=== PATIENT | female | born 1970 | race Caucasian/White ===

== ENCOUNTER → 2017-05-23 | Outpatient (CLI) | payer OTHER | END | disposition home or self-care (01) | LOC: CFH 16:32 | PROVIDERS: ATTEND Nurse Practitioner Family | DX: N85.4 Malposition of uterus (principal) | CPT/HCPCS: 76830 ==

== ENCOUNTER → 2017-07-06 | Outpatient (CLI) | payer OTHER ==
[~2017-07-06] MED LIST: NORE1TAB34 PO
[2017-07-06 14:23] LABS: BASOPHILS # (AUTO) 0.02 x10^3/uL (0-0.1); BASOPHILS % (AUTO) 0 % (0-1); EOSINOPHILS # (AUTO) 0.06 x10^3/uL (0-0.4); EOSINOPHILS % (AUTO) 1 % (1-7); LYMPHOCYTES # (AUTO) 1.49 x10^3/uL (1-3.4); LYMPHOCYTES % (AUTO) 17 % (22-44); MD NO; MEAN CORPUSCULAR HEMOGLOBIN 31.2 pg (27.0-34.8); MEAN CORPUSCULAR HGB CONC 34.2 g/dL (32.4-35.8); MEAN CORPUSCULAR VOLUME 91.4 fL (80-100); MEAN PLATELET VOLUME 8.4 fL (7.4-10.4); MONOCYTES % (AUTO) 4 % (2-9); NEUTROPHILS % (AUTO) 78 % (42-75); PLATELET COUNT 248 x10^3/uL (130-400); RED BLOOD COUNT 4.72 x10^6/uL (3.82-5.3); RED CELL DISTRIBUTION WIDTH 14.1 % (9.6-15.2)
[2017-07-06 14:27] LABS: MICROSCOPIC NOT IND
[2017-07-06 14:29] LABS: CULTURE INDICATED? NO
== END | disposition home or self-care (01) ==
LOC: STAR 13:26
PROVIDERS: ATTEND Obstetrics & Gynecology
DX: Z01.818 Encounter for other preprocedural examination (principal)
CPT/HCPCS: 36415; 81003; 81025; 85025

== ENCOUNTER 2017-07-14 08:00 | Day surgery (SDC) | payer OTHER ==
[~2017-07-14] VITALS: Ht 160 cm; Wt 56.1 kg
[2017-07-14 08:38] VITALS: BP 121/86
[2017-07-14] MEDS ORDERED: LACTATED RINGERS 1,000 ML IV SCH (08:42)
[2017-07-14] MEDS ORDERED: ACETAMINOPHEN 500 MG TABLET PO ONE (09:00)
[2017-07-14] MEDS ORDERED: BUPIVACAINE/PF 0.25% ONE (09:40)
[2017-07-14] MEDS ORDERED: SILVER NITRATE STICK TP ONE (09:40)
[2017-07-14] MEDS ORDERED: SCOPOLAMINE PATCH, 1.5MG PATCH.TD72 TD ONE (09:44)
[2017-07-14] MEDS ORDERED: MIDAZOLAM 1 MG/ML, 2ML ONE (09:47)
[2017-07-14] MEDS ORDERED: FENTANYL PF 250 MCG/5ML ONE (09:47)
[2017-07-14 09:50] LABS: HCG UR SG 1.025 (1.003-1.030)
[2017-07-14] MEDS ORDERED: SUCCINYLCHOLINE 20 MG/ML, 10ML ONE (09:56)
[2017-07-14] MEDS ORDERED: PROPOFOL 10 MG/ML, 20ML ONE (09:56)
[2017-07-14] MEDS ORDERED: ROCURONIUM 10 MG/ML,10ML ONE (09:56)
[2017-07-14] MEDS ORDERED: MEPERIDINE/PF 25MG/0.5ML IVPush PRN (10:30)
[2017-07-14] MEDS ORDERED: MIDAZOLAM 1 MG/ML, 2ML IV PRN (10:30)
[2017-07-14] MEDS ORDERED: ONDANSETRON 2MG/ML, 2ML IVPush PRN (10:30)
[2017-07-14] MEDS ORDERED: HYDROmorphone 1 MG/ML, 1ML IV PRN (10:30)
[2017-07-14] MEDS ORDERED: hydrALAzine 20 MG/ML, 1ML IV PRN (10:30)
[2017-07-14] MEDS ORDERED: PROMETHAZINE 25 MG/ML, 1ML IV PRN (10:30)
[2017-07-14] MEDS ORDERED: LABETALOL 5MG/ML, 20ML IV PRN (10:30)
[2017-07-14] MEDS ORDERED: ALBUTEROL SULFATE 2.5 MG/3 ML NPPB PRN (10:30)
[2017-07-14] MEDS ORDERED: OXYcodone 5 MG/5 ML ORAL.SOL UDC PO PRN (10:30)
[2017-07-14] MEDS ORDERED: OXYcodone 5 MG/5 ML ORAL.SOL UDC ONE (11:30)
[2017-07-14] MEDS ORDERED: FENTANYL PF 100 MCG/2ML ONE (11:38)
[2017-07-14] MEDS: FENTANYL PF 100 MCG/2ML IV PRN ×2 (11:42→11:50)
[2017-07-14] MEDS ORDERED: ONDANSETRON 2MG/ML, 2ML ONE ×2 (12:11→16:36)
[2017-07-14] MEDS ORDERED: PROMETHAZINE 25 MG SUPP PR ONE ×2 (13:37→14:00)
[2017-07-14] MEDS ORDERED: DEXAMETHASONE 4 MG/ML, 1ML ONE (16:36)
== END 2017-07-14 16:20 | disposition home or self-care (01) ==
LOC: OUT 08:00
PROVIDERS: ATTEND Obstetrics & Gynecology
DX: N94.6 Dysmenorrhea, unspecified (principal); N80.9 Endometriosis, unspecified; N73.6 Female pelvic peritoneal adhesions (postinfective); Z98.890 Other specified postprocedural states
CPT/HCPCS: 58660; 81025; J0330; J1100; J2250; J2405; J2704; J3010; J3490; J7120

== ENCOUNTER 2018-10-02 10:52 | Emergency (ER) | payer OTHER ==
[~2018-10-02] VITALS: Ht 160 cm; Wt 59.2 kg
[2018-10-02] MEDS ORDERED: ONDANSETRON ODT 4 MG PO ONE (11:30)
[2018-10-02] MEDS ORDERED: MECLIZINE CHEWABLE 25 MG TAB PO ONE (11:30)
[2018-10-02 11:34] VITALS: BP 124/81
[2018-10-02] MEDS ORDERED: MECLIZINE CHEWABLE 25 MG TAB ONE (11:44)
[2018-10-02] MEDS ORDERED: ONDANSETRON ODT 4 MG ONE (11:44)
[2018-10-02 12:01] LABS: BASOPHILS # (AUTO) 0.03 x10^3/uL (0-0.1); BASOPHILS % (AUTO) 0 % (0-1); EOSINOPHILS # (AUTO) 0.03 x10^3/uL (0-0.4); EOSINOPHILS % (AUTO) 0 % (1-7); LYMPHOCYTES # (AUTO) 0.95 x10^3/uL (1-3.4); LYMPHOCYTES % (AUTO) 9 % (22-44); MD NO; MEAN CORPUSCULAR HEMOGLOBIN 31.5 pg (27.0-34.8); MEAN CORPUSCULAR HGB CONC 34.5 g/dL (32.4-35.8); MEAN CORPUSCULAR VOLUME 91.1 fL (80-100); MEAN PLATELET VOLUME 8.6 fL (7.4-10.4); MONOCYTES # (AUTO) 0.34 x10^3/uL (0.2-0.8); MONOCYTES % (AUTO) 3 % (2-9); NEUTROPHILS # (AUTO) 8.81 x10^3/uL (1.8-6.8); NEUTROPHILS % (AUTO) 87 % (42-75); PLATELET COUNT 291 x10^3/uL (130-400); RED BLOOD COUNT 4.95 x10^6/uL (3.82-5.3)
[2018-10-02 12:05] LABS: ALBUMIN 3.7 g/dL (3.4-5.0); ANION GAP 4 mmol/L (5-15); CALCIUM 8.8 mg/dL (8.5-10.1); CHLORIDE 108 mmol/L (98-107)
[2018-10-02 12:11] LABS: CREATININE 1.06 mg/dL (0.55-1.02); TROPONIN I < 0.015 ng/mL (0.000-0.045)
--- NOTE | 2018-10-02 12:15 | NUR ---
Break RN: Pt medicated as per emar for nausea & dizziness. OOB to restroom w/out assist to give urine sample. Sample tubed to lab. Pt reconnected to cardiac, NIBP & SPO2 monitors. Aware of POC.
[2018-10-02 12:28] LABS: HCG UR SG 1.008 (1.003-1.030)
[2018-10-02 12:29] LABS: MICROSCOPIC INDICATED
== END 2018-10-02 13:00 | disposition home or self-care (01) ==
LOC: ED 12:10
DX: R42 Dizziness and giddiness (principal)
CPT/HCPCS: 36415; 71046; 80048; 81001; 81025; 82040; 83880; 84484; 85025; 85379; 93005; 99284; Q0162

== ENCOUNTER 2020-03-04 10:27 | Emergency (ER) | payer BC, OTHER ==
[~2020-03-04] VITALS: Ht 160 cm; Wt 58.0 kg
--- NOTE | 2020-03-04 10:33 | NUR ---
THIS IS A 49 YO F BIB EMS FROM [facility] W/ C/O WITNESSED SYNCOPAL EPISODE. PT WAS BEING EVALUATED FOR FATIGUE, WEAKNESS, ABD CRAMPING X1 WEEK. PT WAS PRESCRIBED AZITHROMYCIN W/ NO RELIEF. PT REPORTS 1 EPISODE OF VOMITING YESTERDAY. PER EMS PT LOC X30 SECONDS. PT HAS NO C/O HEAD, NECK OR BACK PAIN. PIV CHEMIST. PER EMS. PT RECEIVED 250ML NS BOLUS AND 4MG ZOFRAN CHEMIST. PT RESTING ON GURNEY W/ CALL LIGHT IN REACH AND SIDE RAILS UPX2. CONNECTED TO MONITORING. RESP EVEN AND UNLABORED, NADN. LAKESHIA OMALLEY AT BEDSIDE FOR ED EVAL.
[2020-03-04] MEDS ORDERED: FAMOTIDINE 20 MG/2 ML ONE (10:58)
[2020-03-04] MEDS ORDERED: MORPHINE SULFATE 4 MG/ML, 1ML ONE ×2 (10:58→11:03)
[2020-03-04] MEDS ORDERED: ONDANSETRON 2MG/ML, 2ML ONE (10:58)
[2020-03-04] MEDS ORDERED: ONDANSETRON 2MG/ML, 2ML IVPush ONE (11:00)
[2020-03-04] MEDS ORDERED: SODIUM CHLORIDE FLUSH 10ML SYR IVF ONE (11:00)
[2020-03-04] MEDS ORDERED: SODIUM CHLORIDE 0.9% 1,000ML IVBOLUS ONE (11:00)
[2020-03-04] MEDS ORDERED: FAMOTIDINE 20 MG/2 ML IV ONE (11:00)
[2020-03-04] MEDS ORDERED: MORPHINE SULFATE 4 MG/ML, 1ML IVPush PRN (11:00)
--- NOTE | 2020-03-04 11:00 | NUR ---
PT AMBULATED TO THE BR W/ A STEADY GAIT. URINE COLLECTED AND SENT TO LAB.
--- NOTE | 2020-03-04 11:23 | NUR ---
PT MEDICATED PER EMAR. RESTING ON GURNEY W/ CALL LIGHT IN REACH AND SIDE RAIL UP. CONNECTED TO MONITORING. RESP EVEN AND UNLABORED, ORTEGA.
[2020-03-04 11:26] LABS: MEAN CORPUSCULAR HEMOGLOBIN 31.1 pg (27.0-34.8); MEAN CORPUSCULAR HGB CONC 33.6 g/dL (32.4-35.8); MEAN PLATELET VOLUME 8.6 fL (7.4-10.4); PLATELET COUNT 269 x10^3/uL (130-400); RED BLOOD COUNT 4.67 x10^6/uL (3.82-5.3); RED CELL DISTRIBUTION WIDTH 14.3 % (9.6-15.2)
[2020-03-04 11:34] LABS: MICROSCOPIC INDICATED
[2020-03-04 11:36] LABS: ALANINE AMINOTRANSFERASE 20 U/L (12-78); ALBUMIN 3.4 g/dL (3.4-5.0); ANION GAP 5 mmol/L (5-15); CALCIUM 8.7 mg/dL (8.5-10.1); CHLORIDE 111 mmol/L (98-107); CREATININE 1.03 mg/dL (0.55-1.02)
[2020-03-04 11:39] LABS: ALKALINE PHOSPHATASE 46 U/L (45-117); BILIRUBIN,TOTAL 0.3 mg/dL (0.2-1.0); TOTAL PROTEIN 7.4 g/dL (6.4-8.2)
[2020-03-04 11:47] LABS: BASOPHILS # (AUTO) 0.02 x10^3/uL (0-0.1); BASOPHILS % (AUTO) 0 % (0-1); EOSINOPHILS # (AUTO) 0.04 x10^3/uL (0-0.4); EOSINOPHILS % (AUTO) 0 % (1-7); LYMPHOCYTES # (AUTO) 0.97 x10^3/uL (1-3.4); LYMPHOCYTES % (AUTO) 7 % (22-44); MD SCAN; MONOCYTES % (AUTO) 4 % (2-9); NEUTROPHILS % (AUTO) 89 % (42-75)
--- NOTE | 2020-03-04 11:52 | NUR ---
RAD IN ROOM.
--- NOTE | 2020-03-04 12:29 | NUR ---
AT BEDSIDE FOR RECHECK.
[2020-03-04] MEDS ORDERED: PROMETHAZINE 25 MG/ML, 1ML ONE (12:42)
--- NOTE | 2020-03-04 12:45 | NUR ---
PT VOMITING, REPORTS FEELING DIZZY. UPDATED. PT MEDICATED PER EMAR. PT TBADM.
[2020-03-04] MEDS ORDERED: PROMETHAZINE 25 MG/ML, 1ML IM ONE (13:00)
[2020-03-04 13:06] VITALS: BP 123/71
--- NOTE | 2020-03-04 13:21 | NUR ---
PT UPDATED ON POC.
--- NOTE | 2020-03-04 13:29 | NUR ---
RECEIVED REPORT FROM ZULAY STANFORD, PLAN OF CARE DISCUSSED
[2020-03-04] MEDS ORDERED: D5%-0.45% NACL 1,000 ML IV SCH (13:38)
[2020-03-04] MEDS ORDERED: KETOROLAC 30 MG/1 ML IV PRN (14:00)
[2020-03-04] MEDS ORDERED: ONDANSETRON 2MG/ML, 2ML IVPush PRN (14:00)
[2020-03-04] MEDS ORDERED: POLYETHYLENE GLYCOL 17 GM PACKET PO PRN (14:00)
[2020-03-04] MEDS ORDERED: PROMETHAZINE 25 MG/ML, 1ML IM PRN (14:00)
[2020-03-04] MEDS ORDERED: ACETAMINOPHEN 325 MG TABLET PO PRN (14:00)
[2020-03-04] MEDS ORDERED: ONDANSETRON ODT 4 MG PO PRN (14:00)
[2020-03-04] MEDS ORDERED: DOCUSATE 100 MG CAPSULE PO PRN (14:00)
[2020-03-04] MEDS ORDERED: ENALAPRILAT 1.25 MG/ML, 2ML IVPush PRN (14:00)
[2020-03-04] MEDS ORDERED: HEPARIN 5,000 UNITS/ML, 1ML SQ SCH (14:00)
[2020-03-04] MEDS ORDERED: BISACODYL 10 MG SUPP PR PRN (14:00)
[2020-03-04 14:10] LABS: C-REACTIVE PROTEIN, QUANT 0.81 mg/dL (0.02-0.49)
--- NOTE | 2020-03-04 14:37 | NUR ---
INCREASE EMOTIONAL SUPPORT GIVEN TO PATIENT. EXPLAINED COVID-19 R/O AND ORDERS. PT VERBALIZED UNDERSTANDING. ORDERED MEAL
--- NOTE | 2020-03-04 14:43 | NUR ---
PT STATES SHE WANTS TO LEAVE, BECAUSE HER REACHED OUT TO HER PRIMARY MD AND THEY DOD NOT WANT HER ON THE COVID FLOOR AND THINKS SHE ONLY HAS A UTI. WILL CONTACT
--- NOTE | 2020-03-04 14:47 | NUR ---
SPOKE WITH NONA LEONG AND EXPLAINED
--- NOTE | 2020-03-04 15:13 | NUR ---
IV DC TIP INTACT
[2020-03-04] MEDS ORDERED: FAMOTIDINE 20 MG/2 ML IVPush SCH (21:00)
== END 2020-03-04 10:34 | disposition left against medical advice (07) ==
LOC: ED 10:34 → EDIP 12:45 → UNDOADMIN 12:45
DX: D72.829 Elevated white blood cell count, unspecified (principal); Z20.828 Contact with and (suspected) exposure to other viral communicable diseases; R05 Cough; R11.2 Nausea with vomiting, unspecified; R55 Syncope and collapse; J02.9 Acute pharyngitis, unspecified; M79.10 Myalgia, unspecified site; R51 Headache; R10.9 Unspecified abdominal pain; Z79.899 Other long term (current) drug therapy
CPT/HCPCS: 36415; 71045; 80053; 81001; 83615; 83735; 84100; 84145; 84443; 84703; 85025; 86140; 87086; 87635; 93005; 96361; 96374; 96375; 99285; J2270; J2405; J2550; J7030; 96372